=== PATIENT | male | born 1970 | race Caucasian/White ===

== ENCOUNTER 2016-10-21 06:04 | Emergency (ER) ==
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
[2016-10-21] MEDS ORDERED: TORADOL PO ONE (07:31)
--- NOTE | 2016-10-21 07:41 | Diag Imaging Result Document ---
PROCEDURE NAME: CERVICAL SPINE W/O CONTRAST - 10/21/2016 CT OF THE CERVICAL SPINE: FINDINGS: There has been anterior fusion at C3-4 and at C5-C6. 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 There is no evidence of prevertebral soft-tissue swelling, fracture or subluxation. The facets appear to be aligned. IMPRESSION: No evidence of acute bony disease.
[2016-10-21 07:47] VITALS: BP 150/90
== END 2016-10-21 07:45 | disposition home or self-care (01) ==
LOC: P.ED 06:04
DX: S16.1XXA Strain of muscle, fascia and tendon at neck level, initial encounter (principal); M54.2 Cervicalgia; I10 Essential (primary) hypertension; Z79.899 Other long term (current) drug therapy; V49.40XA Driver injured in collision with unspecified motor vehicles in traffic accident, initial encounter
CPT/HCPCS: 72125